=== PATIENT | female | born 1970 | race Caucasian/White ===

== ENCOUNTER → 2020-11-16 11:52 | Outpatient (BNVA) | payer OTHER, SELFPAY | PROVIDERS: Family Provider Family Medicine; PCP Family Medicine; Visit Provider Family Medicine | DX: R10.9 Unspecified abdominal pain (principal); R63.5 Abnormal weight gain; Z13.6 Encounter for screening for cardiovascular disorders; Z79.899 Other long term (current) drug therapy | CPT/HCPCS: 81000 ==

== ENCOUNTER → 2021-04-27 11:10 | Outpatient (BNVA) | payer OTHER, SELFPAY | PROVIDERS: Family Provider Family Medicine; PCP Family Medicine; Visit Provider Nurse Practitioner Family | DX: Z20.822 Contact with and (suspected) exposure to COVID-19 (principal) | CPT/HCPCS: 87426; 87635 ==

== ENCOUNTER 2021-10-19 13:51 | Outpatient (CLI) | payer OTHER, SELFPAY ==
--- NOTE | 2021-10-19 13:45 | US_ITS ---
WS: [id number] TRANSABDOMINAL PELVIC AND TRANSVAGINAL PELVIC ULTRASOUND HISTORY: uterine fibroids COMPARISON: 06/01/2017 Uterus: 13.0 cm x 10.0 cm x 6.4 cm. Markedly enlarged heterogeneous uterus. The uterus extends way ab ove the urinary bladder. Heterogeneity with areas of mixed echogenicity throughout the myometrium. Th ere is no discrete mass. This is consistent with diffuse fibroid uterus. Endometrium: Not visualized. Completely obscured by the large fibroids. Right ovary: 2.6 cm x 1.6 cm x 1.6 cm. Normal size and vascularity. Left ovary: Not identified. No free fluid. US/US pelvic with transvaginal IMPRESSION: 1. Extremely limited and difficult evaluation of the uterus due to marked enla rgement and heterogeneity. Findings are consistent with fibroid uterus. Due to the enlargement and heterogeneity malignant degeneration should be considered a s a possible etiology. Recommend MUSICAL INSTRUMENT MECHANIC evaluation for consideration of hysterecto my. 2. LEFT ovary not identified. 3. Endometrium not identified due to the fibroid involvement.
== END 2021-10-19 13:52 | disposition home or self-care (01) ==
PROVIDERS: PCP Family Medicine; Visit Provider Family Medicine
DX: D25.9 Leiomyoma of uterus, unspecified (principal); N85.2 Hypertrophy of uterus
CPT/HCPCS: 76830; 76856

== ENCOUNTER → 2021-10-27 11:52 | Outpatient (BNVA) | payer OTHER, SELFPAY | PROVIDERS: PCP Family Medicine; Visit Provider Obstetrics & Gynecology | DX: Z01.419 Encounter for gynecological examination (general) (routine) without abnormal findings (principal) | CPT/HCPCS: 87624 ==

== ENCOUNTER 2021-10-28 08:12 | Outpatient (CLI) | payer OTHER, SELFPAY ==
--- NOTE | 2021-10-28 08:19 | MM_ITS ---
WS: [id number] SCREENING TOMOSYNTHESIS DIGITAL MAMMOGRAM WITH CAD HISTORY: screening mammogram COMPARISON: 07/07/2017, 05/12/2017 and 12/30/2013 Bilateral CC and MLO views submitted. Computer aided detection analyzed. Breast composition: The breasts are heterogeneously dense, which may obscure small masses. No suspici ous masses, microcalcifications or architectural distortion. MM/[place] [id number] IMPRESSION: BI-RADS: 1-Negative FOLLOW UP: 1 Year Follow-up
== END 2021-10-28 08:13 | disposition home or self-care (01) ==
LOC: RAD 08:13
PROVIDERS: PCP Family Medicine; Visit Provider Family Medicine
DX: Z12.31 Encounter for screening mammogram for malignant neoplasm of breast (principal)
CPT/HCPCS: 77063; 77067

== ENCOUNTER 2021-11-30 08:38 | Day surgery (SDC) | payer OTHER, SELFPAY ==
[2021-11-29 13:20] VITALS: BMI 30.1
[2021-11-30] VITALS (10 sets, daily range): BP systolic 111–142; BP diastolic 47–85; PULSE 63–100; RESP 12–18; TEMP 36.1–36.7; O2SAT 96–100
--- NOTE | 2021-11-30 09:22 | ANES.PREANE2 ---
Pre-Anesthetic Assessment Height/Weight: Height 1.6 m Weight 77.111 kg Temp Pulse Resp BP Pulse Ox 97 F L 63 16 134/85 96 11/30/21 08:54 11/30/21 08:54 11/30/21 08:54 11/30/21 08:54 11/30/21 08:54 Preop Diagnosis: AUB, enlarged uterus Operation Date: 11/30/21 10:10 Proposed Procedures p Hysteroscopy, dilation and curettage with Myosure 21035, 34561, 19773, N93.9,D25.9(Not Applicable) - Shana Dumas MD s Dilation And Curettage (D&C)(Not Applicable) - Shana Dumas MD Familial anesthetic complications: None Was Beta Hernan taken within 24 hours: N/A Was Clonidine taken within 24 hours: N/A Last intake: Intake Last Liquid Date 11/29/21 Last Liquid Time 21:30 Last Solid Date 11/29/21 Last Solid Time 21:30 Social No alcohol and No tobacco Exam alert, oriented x 3, clear to auscultation bilaterally and regular rate & rhythm Airway Submandibular: within normal limits Cervical ROM: within normal limits Mallampati: Class I Dentition: full History/ROS No significant complaints Pulmonary None reported CV/HEM None reported None reported Hepatic None reported GI Gastroesophageal Reflux Disease (Occasional heartburn ) Metabolic None reported Musc/skel Psoriasis Neuropsych None reported Anesthetic Plan ASA status: 2 Anesthesia: Anesthesia Evaluation and General Other: We discussed risk and benefits of general anesthesia including PONV, sore throat (sometimes severe), corneal abrasion, positioning and peripheral nerve injuries, life threatening allergic reaction, post operative ICU admission requiring prolonged intubation, stroke, heart attack, , and rare incidences of recall. Patient consents to proceed with general anesthesia. Risk of > 500 ml blood loss (7ml/kg in children): No Medications/Allergies Home Medications Medication Instructions Recorded Confirmed Last Taken Type betamethasone dipropionate 0.05 % 1 applic TOPICAL BID PRN #45 g 12/24/20 11/30/21 09/29/21 Rx topical cream cetirizine 1 mg/mL oral solution 2.5 mg PO BID PRN 10/27/21 11/30/21 11/27/21 History (All Day Allergy (cetirizine)) Allergies Allergy/AdvReac Type Severity Reaction Status Date / Time Penicillins AdvReac Mild RASH Verified 11/30/21 08:51 PFSH Anesthesia Medical History No pertinent past medical history neghx: htn,dm, thyroid, dvt/pe PCP: Dr. Magana Uterine fibroid Surgical History H/O section Family History Mother Hyperlipidemia Father Hypertension Family/Other Ovarian cancer maternal aunt Uterine cancer maternal aunt Denies family history of Colon cancer Prostate cancer Diabetes Heart disease Breast cancer Bleeding disorder Thyroid disease Stroke Data Anesthesia : 11/30/21 09:11 Cardiac Studies: No Data to Display
[2021-11-30] MEDS: sodium chloride 0.9% 1,000 ML 30 ML IV (09:23)
[2021-11-30 09:26] LABS: OR HCG Qualitative Urine Negative (Negative)
[2021-11-30] MEDS: scopolamine 1.5 Patch 1 PATCH TRANSDERMA (09:32)
[2021-11-30 09:38] LABS: Basophils # 0.1 10^3/uL (0.0-0.1); Eosinophils # 0.1 10^3/uL (0.0-0.8); Eosinophils % 1.4 %; Hematocrit 41.1 % (37.0-47.0); Hemoglobin 13.3 g/dL (11.5-15.3); Lymphocytes # 1.8 10^3/uL (0.8-4.8); Lymphocytes % 36.4 %; Mean Corpuscular HGB Conc 32.4 g/dL (30.0-36.0); Mean Corpuscular Hemoglobin 28.4 pg (28.0-34.0); Mean Corpuscular Volume 87.8 fl (81-99); Mean Platelet Volume 10.2 fL (7.4-10.4); Monocytes # 0.3 10^3/uL (0.2-0.9); Monocytes % 5.5 %; Neutrophils # 2.81 10^3/uL (1.8-7.7); Neutrophils % 55.7 %; Nucleated Red Blood Cells % 0 %; Platelet Count 358 10^3/cmm (130-400); Red Blood Count 4.68 10^6/uL (4.1-5.3); Red Cell Distribution Width 14.2 % (12.1-15.1); White Blood Count 5.1 10^3/uL (4.0-10.0)
--- NOTE | 2021-11-30 10:13 | W.PM.OPSUD ---
Surgery/Procedure H&P Update DATE OF PROCEDURE: November 30, 2021 DATE H&P PERFORMED: 10/27/21 H&P UPDATE INFORMATION: I have reviewed H&P completed within last 30 days, I have examined patient prior to procedure and No changes to prior documentation PREOP DIAGNOSIS: AUB, enlarged uterus PLANNED PROCEDURE: Operation Date: 11/30/21 10:10 Proposed Procedures p Hysteroscopy, dilation and curettage with Myosure 86626, 14775, 20206, N93.9,D25.9(Not Applicable) - Shana Dumas MD s Dilation And Curettage (D&C)(Not Applicable) - Shana Dumas MD Related Problem List Diagnoses (1) Abnormal uterine bleeding (AUB): (2) Enlarged uterus: (3) Uterine fibroid:
--- NOTE | 2021-11-30 11:50 | PM.OP ---
Operative Report Date of procedure: November 30, 2021 Pre-op diagnosis: Preop Diagnosis AUB, enlarged uterus Post-op diagnosis: same Post-op findings: 15 week sized uterus with multiple fibroids and polyps. Also prolapsing endocervical polyp Procedure done: hysteroscopy, dilation and curettage with myosure Specimens removed/disposition: endometrial polyps and fibroids, endocervical polyp to pathology Surgeon: Shana Dumas Anesthesia: General Estimated blood loss (mL): 5 IV fluids (mL): 600 Complications: none Findings: 15 week sized uterus, multiple fibroids and polyps Condition: stable Disposition: PACU Procedure: The patient was taken to the operating room where monitored anesthesia was administered and to be adequate. She was prepped and draped in the normal sterile fashion in the dorsal lithotomy position in [facility]. A weighted speculum was placed into the vagina and the anterior lip of the cervix grasped with a single-tooth tenaculum. The uterus was sounded to for 15 cm. The cervix was dilated to 16 English. There was a endocervical polyp present at the cervical os. This was grasped with a ringed forceps and turned clockwise until it was removed. The hysteroscope was advanced into the endometrial cavity. There was a huge fibroid anteriorly as well as several polyps on the left wall of the uterus and some smaller fibroids posterior visualized. The MyoSure device was activated and the tissue was removed. Pictures were taken. All instruments were removed. The patient tolerated the procedure well. Sponge lap and needle counts were correct x3. She was taken to the recovery room in stable condition.
--- NOTE | 2021-11-30 12:00 | P.DS_ITS ---
Discharge Providers Date of Admission: 11/30/21 Date of Discharge: November 30, 2021 Attending Provider at Admission: Alesia Attending Provider at Discharge: Shana Dumas MD Primary Care Provider: Nola Magana DO Diagnoses at Discharge Discharge Diagnosis (1) Abnormal uterine bleeding (AUB): Status: Acute (2) Enlarged uterus: Status: Acute (3) Uterine fibroid: Status: Acute Hospital Course Hospital Course The patient was admitted for surgery. She did well postoperatively and was ready for discharge. Discharge Data Studies Completed and Pending Pending at discharge Category Date Time Status ES surgery / GI images Routine Exams 11/30/21 09:02 Ordered Laboratory Results WBC 5.1 10^3/uL (4.0-10.0) 11/30/21 09:11 RBC 4.68 10^6/uL (4.1-5.3) 11/30/21 09:11 Hgb 13.3 g/dL (11.5-15.3) 11/30/21 09:11 Hct 41.1 % (37.0-47.0) 11/30/21 09:11 MCV 87.8 fl (81-99) 11/30/21 09:11 MCH 28.4 pg (28.0-34.0) 11/30/21 09:11 MCHC 32.4 g/dL (30.0-36.0) 11/30/21 09:11 RDW 14.2 % (12.1-15.1) 11/30/21 09:11 Plt Count 358 10^3/cmm (130-400) 11/30/21 09:11 MPV 10.2 fL (7.4-10.4) 11/30/21 09:11 Neut % (Auto) 55.7 % 11/30/21 09:11 Lymph % (Auto) 36.4 % 11/30/21 09:11 [place] % (Auto) 5.5 % 11/30/21 09:11 Eos % (Auto) 1.4 % 11/30/21 09:11 Baso % (Auto) 1.0 % 11/30/21 09:11 Neut # (Auto) 2.81 10^3/uL (1.8-7.7) 11/30/21 09:11 Lymph # (Auto) 1.8 10^3/uL (0.8-4.8) 11/30/21 09:11 [place] # (Auto) 0.3 10^3/uL (0.2-0.9) 11/30/21 09:11 Eos # (Auto) 0.1 10^3/uL (0.0-0.8) 11/30/21 09:11 Baso # (Auto) 0.1 10^3/uL (0.0-0.1) 11/30/21 09:11 Nucleated RBC % (auto) 0 % 11/30/21 09:11 Nucleated RBCs # 0.0 /100WBC 11/30/21 09:11 Urine HCG, Qual Negative (Negative) 11/30/21 09:24 Vitals Last Vital Signs Temp 97 F L 11/30/21 08:54 Pulse 63 11/30/21 08:54 Resp 16 11/30/21 08:54 BP 134/85 11/30/21 08:54 Pulse Ox 96 11/30/21 08:54 Discharge Plan Discharge Patient Disposition: Home Condition: Stable Prescriptions: Continued cetirizine [All Day Allergy (cetirizine)] 1 mg/mL solution 2.5 mg PO BID PRN (Reason: Allergy Symptoms) 0RF betamethasone dipropionate 0.05 % cream 1 applic topical BID PRN (Reason: skin irritation) Qty: 45 0RF Discharge Orders: Discharge Order (Routine); Ordered 11/30/21 Ordered By: Shana Dumas Discharge Attestations Time Spent in Discharge Care*: less than 30 min Quality Metrics Clinical Quality Measures [ No reported AMI, CVA or VTE this stay] Coding Level of Care Code Acute Chg FW DC note Diagnoses Abnormal uterine bleeding (AUB) N93.9 Enlarged uterus N85.2 Uterine fibroid D25.9
--- NOTE | 2021-11-30 14:37 | ANE.PACU2 ---
Inpatient post-anesthesia follow up: Airway intact: Yes Vital signs: Temperature 98.0 F Pulse Rate 83 Respiratory Rate 18 Blood Pressure 119/73 Pulse Oximetry 99 Oxygen Delivery Me thod Room Air Oxygen Flow Rate 6 Fraction of Inspir ed Oxygen Hydration adequate: Yes Nausea and vomiting: No Pain level: 1 Mental status: Baseline
--- NOTE | 2021-12-01 17:47 | W.PM.OPSUD ---
Surgery/Procedure H&P Update DATE OF PROCEDURE: December 01, 2021 DATE H&P PERFORMED: 11/24/21 H&P UPDATE INFORMATION: I have reviewed H&P completed within last 30 days, I have examined patient prior to procedure and No changes to prior documentation PREOP DIAGNOSIS: AUB, enlarged uterus PLANNED PROCEDURE: Operation Date: 11/30/21 10:10 Proposed Procedures p Hysteroscopy, dilation and curettage with Myosure 75657, 67328, 72023, N93.9,D25.9(Not Applicable) - Shana Dumas MD s Dilation And Curettage (D&C)(Not Applicable) - Shana Dumas MD
== END 2021-11-30 13:11 | disposition home or self-care (01) ==
PROVIDERS: PCP Family Medicine; Visit Provider Obstetrics & Gynecology
PROC: 0UDB8ZZ Extraction of Endometrium, Via Natural or Artificial Opening Endoscopic (ICD-10-PCS; CPT 58558; principal; 2021-11-30 10:00)
PROC: (CPT 58120; 2021-11-30 10:00)
DX: N93.9 Abnormal uterine and vaginal bleeding, unspecified (principal); N85.2 Hypertrophy of uterus; D25.9 Leiomyoma of uterus, unspecified; K21.9 Gastro-esophageal reflux disease without esophagitis
CPT/HCPCS: 58558; 36415; 81025; 84703; 85025; 88305; J0330; J1100; J1885; J2250; J2405; J2704; J3010; J3490; J7030

== ENCOUNTER → 2023-09-08 13:08 | Outpatient (BNVA) | payer OTHER, SELFPAY | PROVIDERS: PCP Family Medicine; Visit Provider Family Medicine | DX: Z13.6 Encounter for screening for cardiovascular disorders (principal); N89.8 Other specified noninflammatory disorders of vagina | CPT/HCPCS: 87070; 87205 ==

== ENCOUNTER 2023-09-15 11:16 | Outpatient (CLI) | payer OTHER, SELFPAY ==
--- NOTE | 2023-09-15 11:30 | MM_ITS ---
WS: [id number] BILATERAL 3D TOMOSYNTHESIS DIGITAL SCREENING MAMMOGRAPHY WITH CAD CLINICAL INFORMATION: screening HISTORY: Screening mammogram. No current complaints. COMPARISON: 10/28/2021 TECHNIQUE: Bilateral CC and MLO views. FINDINGS: The breasts are composed of heterogeneous fibroglandular density tissue, which can limit the detectio n of small underlying mass lesions. No suspicious mass, asymmetry, calcifications, or architectural d istortion. No evidence of malignancy. Incidental punctate calcifications. IMPRESSION: MM/[place] [id number] BI-RADS: 2-Benign FOLLOW UP: 1 Year Follow-up Recommend return to annual screening mammography.
--- NOTE | 2023-09-15 12:45 | USR_ITS ---
PROCEDURE INFORMATION: Exam: US Pelvis, Transvaginal Exam date and time: 09/15/2023 12:08 PM Age: 52 years old Clinical indication: Other: Aub; Additional info: Aub, PT having mammo first LABS AND CLINICAL REPORTS: Last menstrual period start date: 07/31/2023 TECHNIQUE: Imaging protocol: Real-time transvaginal pelvic ultrasound with image documentation. Transvaginal imaging was used for better evaluation of the endometrium, adnexa, and/or cervix. COMPARISON: US pelv w/transvag [id number] 10/19/2021 2:23 PM FINDINGS: Uterus: The uterus demonstrates a heterogeneous appearance and mild enlargement. The uterus measures 9.8 x 6.8 x 8 cm. There appear to be multiple uterine fibroids present. The endometrial stripe can not be identified. Right ovary/adnexa: Normal. No mass. Normal ovarian blood flow. Left ovary/adnexa: The left ovary is not seen. Intraperitoneal space: No free fluid. US/US transvaginal [id number] IMPRESSION: 1. Multiple uterine fibroids 2. Endometrial stripe not identified
== END 2023-09-15 11:17 | disposition home or self-care (01) ==
LOC: RAD 11:17
PROVIDERS: PCP Family Medicine; Visit Provider Family Medicine
DX: Z12.31 Encounter for screening mammogram for malignant neoplasm of breast (principal); N93.9 Abnormal uterine and vaginal bleeding, unspecified; D25.9 Leiomyoma of uterus, unspecified; R92.30 Dense breasts, unspecified
CPT/HCPCS: 76830; 77063; 77067